=== PATIENT | male | born 1970 | race Two or more races ===

== ENCOUNTER 2021-08-03 20:22 | Emergency (ER) | payer OTHER ==
[2021-08-03 20:37] VITALS: BP 102/72; PULSE 56; TEMP 98.8; BMI 21.6
[2021-08-03] MEDS ORDERED: methylPREDNISolone NA SUCC 125 MG/2 ML VIAL IVPUSH ONE (20:53)
[2021-08-03] MEDS ORDERED: FAMOTIDINE 20 MG/50 ML IVPB 20 MG/50 ML MG IVPB ONE ×2 (21:33→21:37)
[2021-08-03] MEDS ORDERED: methylPREDNISolone NA SUCC 125 MG/2 ML VIAL ONE (21:37)
== END 2021-08-03 22:36 | disposition home or self-care (01) ==
LOC: JER 20:22
DX: T78.40XA Allergy, unspecified, initial encounter (principal)
CPT/HCPCS: 99283-25